=== PATIENT | female | born 1980 | race African-American/Black ===

== ENCOUNTER 2016-11-21 14:38 | Emergency (ER) | payer OTHER ==
[~2016-11-21] VITALS: Ht 162.6 cm; Wt 64.4 kg
[2016-11-21 14:39] VITALS: BP 127/86
[2016-11-21] MEDS ORDERED: BUPR150T3 (14:49)
== END 2016-11-21 16:00 | disposition home or self-care (01) ==
LOC: M ED 15:54
DX: H53.8 Other visual disturbances (principal)

== ENCOUNTER → 2017-10-04 | Outpatient (CLI) | payer OTHER | LOC: M RAD 08:33 | DX: Z12.31 Encounter for screening mammogram for malignant neoplasm of breast (principal) | CPT/HCPCS: 77067 ==

== ENCOUNTER 2018-01-01 07:39 | Day surgery (SDC) | payer OTHER ==
[2018-01-01 08:09] LABS: HEMATOCRIT 35.7 % (36.0-47.0); HEMOGLOBIN 11.8 g/dl (12.0-15.5); MEAN CORPUSCULAR HEMOGLOBIN 30.3 pg (27.0-33.0); MEAN CORPUSCULAR HGB CONC 33.1 g/dl (32.0-36.5); MEAN CORPUSCULAR VOLUME 91.8 fl (80.0-96.0); PLATELET COUNT, AUTOMATED 166 10^3/uL (150-450); RED BLOOD COUNT 3.89 10^6/uL (4.00-5.40); RED CELL DISTRIBUTION WIDTH 12.6 % (11.5-14.5); WHITE BLOOD COUNT 5.9 10^3/uL (4.0-10.0)
[2018-01-01 08:17] LABS: CONTROL LINE HCG INT CTR LINE PRESENT; HCG, SERUM QUALITATIVE NEGATIVE (NEGATIVE)
[2018-01-01] MEDS: LR 1,000 ML IV (08:20)
[2018-01-01] MEDS ORDERED: PROPOFOL 200 MG/20 ML VIAL As Ordered (09:11)
[2018-01-01] MEDS ORDERED: LIDOCAINE 2% INJ 100 MG/5 ML SDV (FOR ANES.) As Ordered (09:11)
[2018-01-01] MEDS ORDERED: ROCURONIUM BROMIDE 50 MG/5 ML VIAL As Ordered (09:11)
[2018-01-01] MEDS ORDERED: fentaNYL 250 MCG/5 ML INJECTION (J3010) As Ordered (09:12)
[2018-01-01] MEDS ORDERED: MIDAZOLAM INJ 2 MG/2 ML VIAL (J2250) As Ordered (09:12)
[2018-01-01] MEDS ORDERED: METHYLENE BLUE 0.5% (5MG/ML) 10 ML AMP (PROVAYBLUE)(Q9968 PER 1MG) As Ordered (09:57)
[2018-01-01] MEDS: BUPIVACAINE HCL 0.25% 30 ML VIAL As Ordered (10:12)
[2018-01-01] MEDS ORDERED: ONDANSETRON 4MG/2ML VIAL (J2405) As Ordered ×2 (10:13→12:16)
[2018-01-01] MEDS: SILVER NITRATE APPLICATOR As Ordered (10:13)
[2018-01-01] MEDS ORDERED: KETOROLAC 60 MG/2 ML VIAL (J1885) As Ordered (10:13)
[2018-01-01] MEDS ORDERED: GLYCOPYRROLATE INJ 0.2 MG/ML 2 ML VIAL As Ordered (10:13)
[2018-01-01] MEDS ORDERED: dexameTHASONE 4 MG/ML 1ML VIAL (J1100) As Ordered ×2 (10:13)
[2018-01-01] MEDS ORDERED: NEOSTIGMINE 10 MG/10 ML VIAL (J2710) As Ordered (10:13)
[2018-01-01] MEDS ORDERED: fentaNYL 100 MCG/2 ML INJECTION (J3010) IV (11:00)
[2018-01-01] MEDS ORDERED: LR 1,000 ML IV (11:00)
[2018-01-01] MEDS: PERCOCET 5MG/325MG TAB PO (11:42)
[2018-01-01] MEDS: ONDANSETRON 4MG/2ML VIAL (J2405) IV (12:21)
== END 2018-01-01 13:31 | disposition home or self-care (01) ==
LOC: M SDC 07:39
DX: N97.9 Female infertility, unspecified (principal); K21.9 Gastro-esophageal reflux disease without esophagitis; F90.9 Attention-deficit hyperactivity disorder, unspecified type; L70.9 Acne, unspecified; F41.9 Anxiety disorder, unspecified; Z91.018 Allergy to other foods
CPT/HCPCS: 58350

== ENCOUNTER → 2018-11-21 | Outpatient (CLI) | payer OTHER ==
[~2018-11-21] MED LIST: BUPR150T3; IBUP1TAB7 PO; PRENTAB9 PO
--- NOTE | 2018-11-21 09:01 | REPMRS ---
Patient History The patient states she had a clinical breast exam in November 2018. Family history of breast cancer at age 72 in maternal grandmother. 2D ONLY Digital Mammo Screening Bilat: November 21, 2018 - Exam #: [id number] Bilateral CC and MLO view(s) were taken. Technologist: Juju Hendrix, Technologist Prior study comparison: October 04, 2017, bilateral digital mammo screening bilat performed at [facility]. October 05, 2015, bilateral digital mammo screening bilat, performed at [facility]. FINDINGS: The breast tissue is extremely dense which could obscure a lesion on mammography. There is an extremely dense symmetrical pattern of residual fibroglandular tissue. There has been no change in the appearance of the mammogram from the previous studies. There is no interval development of dominant mass, archetectural distortion, or microcalcific cluster suggestive of malignancy. Assessment: BI-RADS/ACR category 1 mammogram. Negative Mammogram. Recommendation Routine screening mammogram of both breasts in 1 year (for women over age 40). This patient's Lifetime Breast Cancer RIsk is estimated at 16.5 %. This mammogram was interpreted with the aid of an FDA-approved computer-aided dectection system. Electronically Signed By: Tyrone Figueroa MD 11/21/18 0901
== END ==
LOC: M RAD 08:09
PROVIDERS: ATTEND Nurse Practitioner Women's Health
DX: Z12.31 Encounter for screening mammogram for malignant neoplasm of breast (principal)